=== PATIENT | male | born 1950 | race Hispanic/Latino ===

== ENCOUNTER 2017-09-04 10:09 | Emergency (ER) | payer OTHER ==
[~2017-09-04] VITALS: Ht 160 cm; Wt 84.4 kg
[~2017-09-04 10:09] MED LIST: ENALAPRIL MALEA20 MG PO; GLIMEPIRIDE1 MG PO; LYRICA100 MG PO; NORCO 7.5-3251 EACH PO; PRAVASTATIN SOD40 MG PO; SMZ/TMP PO
--- NOTE | 2017-09-04 11:35 | Diagnostic Imaging Report ---
Exams: Head, maxillofacial and cervical spine CTs without IV contrast History: Trauma Comparison studies:None Technique: Axial images were obtained from the brain, face and cervical spine. Coronal and sagittal reconstructions obtained from the axial data. Intravenous contrast: None Findings: Head CT: Scalp: No abnormalities. Bones: No fractures, blastic or lytic lesions. Brain sulci: Appropriate for age. Ventricles: Normal in size and configuration. No hydrocephalus. Parenchyma: No mass, acute hemorrhage or acute or chronic cortical vascular insults. A couple of subtle hypodensities in the supratentorial white matter are nonspecific but most compatible with chronic microvascular ischemic changes. Sellar/suprasellar region: No abnormalities Craniocervical junction: The foramen magnum is patent. No Chiari one malformation. Maxillofacial CT: Soft tissues: Mild right premaxillary swelling. Incidental 5 mm dystrophic calcification in the superficial right prezygomatic soft tissues. Bones: No fractures or bony abnormalities. . Orbits: No abnormalities. Paranasal sinuses: Small retention cyst in the left maxillary sinus and mild left frontoethmoidal mucosal thickening. Remaining sinuses are clear. Incidental nonobstructing 7 mm left frontal sinus osteoma. Dentition: Multiple absent teeth. Multifocal dental caries with periapical lucencies at the left first maxillary molar and right second mandibular molar. Incidental impacted left third maxillary molar. Cervical spine CT: Fractures: None. Soft tissue injuries: No gross acute abnormalities. Atlantoaxial articulation: Intact. Alignment: Straightened cervical curvature may be positional. No subluxations. Cervicomedullary junction: No abnormalities. Patent foramen magnum. Soft tissues: No gross acute abnormalities. Vertebrae: No acute fractures, infection or destructive lytic or blastic osseous lesions. Small focal endplate depression deformities with small Schmorl's nodes and mild central vertebral body height loss at C6. Degenerative changes: Small disc osteophyte complexes at C5-C6 and at C6-C7 indent the thecal sac but do not result in canal stenosis. Moderate foraminal stenosis on the left at C5-C6 and bilaterally at C6-C7 due to uncovertebral arthrosis. Incidental findings: Nonaggressive-appearing 5 mm sclerotic lesion in the head of the posterior right first rib may reflect bone island. IMPRESSION: Head CT: 1. No acute abnormalities. 2. Minimal chronic microvascular ischemic changes. Facial CT: 1. Right premaxillary soft tissue swelling. 2. No maxillofacial fractures. Cervical spine CT: 1. No acute cervical spine fracture or subluxation. 2. Degenerative changes at C5-C6 and C6-C7 as described. 3. Cannot adequately evaluate ligament, spinal cord and or vascular abnormalities on the basis of this exam. Signed by: Dr. Ab Edwards M.D. on 09/04/2017 11:31 AM
[2017-09-04 12:14] VITALS: BP 141/87
[2017-09-04] MEDS ORDERED: ADENOSINE 6MG/2ML 1 ML ONE (17:27)
== END 2017-09-04 12:04 | disposition home or self-care (01) ==
LOC: ER 10:09
DX: S00.83XA Contusion of other part of head, initial encounter (principal); M54.2 Cervicalgia; S16.1XXA Strain of muscle, fascia and tendon at neck level, initial encounter; Y04.8XXA Assault by other bodily force, initial encounter; Y92.488 Other paved roadways as the place of occurrence of the external cause; I10 Essential (primary) hypertension; E11.9 Type 2 diabetes mellitus without complications; E78.5 Hyperlipidemia, unspecified; Z85.46 Personal history of malignant neoplasm of prostate
CPT/HCPCS: 70450; 70486; 72125; 99283; J0153

== ENCOUNTER → 2017-10-04 | Outpatient (CLI) | payer MEDICARE ==
--- NOTE | 2017-10-04 11:53 | Diagnostic Imaging Report ---
PROCEDURE: CT ABDOMEN AND PELVIS WITHOUT CONTRAST TECHNIQUE: The abdomen and pelvis were scanned utilizing a multidetector helical scanner from the diaphragm to the lesser trochanter after the oral administration of water. No IV contrast was administered per protocol. Coronal and sagittal multiplanar reformations were obtained. COMPARISON: [facility], CT, CT ABDOMEN/PELVIS , 09/04/2016, 11:36. INDICATIONS: URINARY CALCULUS/COLIC FINDINGS: ABSENCE OF INTRAVENOUS CONTRAST DECREASES SENSITIVITY FOR DETECTION OF FOCAL LESIONS AND VASCULAR PATHOLOGY. LOWER THORAX: Multiple linear opacities are noted in the right middle lobe and posterior and lateral right lower lobe (for example series 3, image 2), with clustered 4 mm nodular densities in the lateral right lower lobe (series 3, image 2) and this clustered 5-6 mm nodular density in the posterior right lower lobe (for example series 3, images 7-11). Linear opacity in the lingula (series 3, image 5). HEPATOBILIARY: Diffuse hepatic steatosis. No focal lesions. No biliary ductal dilation. The gallbladder is unremarkable. SPLEEN: No splenomegaly. PANCREAS: No focal masses or ductal dilatation. ADRENALS: No adrenal nodules. KIDNEYS/URETERS: Slight interval increase in size of 0.9 x 0.6 cm nonobstructing calculus in the left mid to inferior aspect (series 3, image 91) disease, which previously measured approximately 0.7 x 0.4 cm.. No other renal or any ureteral calculi. No hydronephrosis, hydroureter, or evidence of obstruction. Stable 3.6 x 4.1 cm simple cyst in the left superior pole (series 3, image 69) disease. Stable 2.1 x 1.7 cm simple cyst in the left interpolar region (series 3, image 80). Slight interval increase in size of 2.9 x 3.0 cm simple cyst in the posterior mid to inferior left kidney (series 3, image 93), which previously measured 2.5 x 2.6 cm.. Stable 1.4 x 1.1 cm simple cyst in the left interpolar region (series 3, image 85). Stable 0.9 cm fluid density simple cyst in the right inferior pole (series 3, image 90). PELVIC ORGANS/BLADDER: Bladder is unremarkable. No stones, wall thickening, or focal lesions. Prostate is unremarkable. PERITONEUM / RETROPERITONEUM: No free air or free fluid. LYMPH NODES: No lymphadenopathy. VESSELS: Atherosclerotic calcification of the distal abdominal aorta and proximal iliac vessels. Incidental note is made of a left circumaortic renal vein GI TRACT: No bowel dilation or evidence of obstruction. BONES AND SOFT TISSUES: Degenerative disc changes, predominantly L4-L5, and L5-S1. Facet hypertrophy. L4-L5 and L5-S1. No aggressive lytic lesions. Soft tissues are grossly unremarkable. IMPRESSION: 1. slight interval increase in size of 0.9 x 0.6 cm nonobstructing calculus in the left mid to inferior kidney. No other renal or any ureteral calculi. No hydronephrosis or obstruction. 2. Slight interval increase in size of 3.0 cm simple cyst in the posterior mid to inferior left kidney. Other bilateral simple cysts are stable. 3. Diffuse hepatic steatosis. 4. Multiple linear opacities in the right middle lobe and posterior and lateral right lower lobe and lingula, may represent subsegmental atelectasis or scarring. 5. Clustered 4 and 5-6 mm nodular densities in the lateral right lower lobe and posterior right lower lobe, respectively, which may represent confluent scarring, however, infectious nodules are also a consideration, in the appropriate clinical setting. This may be further evaluated with chest CT. Lorenzo Paulson M.D. Dictated by: Lorenzo Paulson M.D. on 10/04/2017 at 11:59 Electronically approved by: Lorenzo Paulson M.D. on 10/04/2017 at 11:59
== END ==
LOC: CT 10:37
PROVIDERS: ATTEND Urology
DX: N20.0 Calculus of kidney (principal); R91.8 Other nonspecific abnormal finding of lung field
CPT/HCPCS: 74176

== ENCOUNTER → 2017-12-07 | Day surgery (SDC) | payer MEDICARE ==
[~2017-12-07] MED LIST changes: +DEXAMETHASONE SOD PHOS INJ 4 MG/ML VIAL ONE; +FENTANYL CITRATE/PF 100MCG/2 ML INJ ONE; +GENTAMICIN 80MG/NS 100 ML 200 ML IV ONE; +IOPAMIDOL 610MG/1ML 300 MG/ML VIAL IV ONE; +MIDAZOLAM HCL 2 MG/2 ML VIAL ONE; +SEVOFLURANE INHAL SOLN 250 ML PEN BTL ONE
[2017-12-07 08:30] LABS: BASOPHILS % 0.4 % (0.0-1.0); EOSINOPHILS # (AUTO) 0.1 (0.0-0.4); EOSINOPHILS % 1.7 % (0.0-6.0); HEMATOCRIT 38.7 % (38.2-49.6); HEMOGLOBIN 13.2 g/dL (14.0-18.0); MEAN CORPUSCULAR HGB CONC 34.1 g/dL (31-35); MEAN CORPUSCULAR VOLUME 90.8 fL (81-99); MONOCYTES # (AUTO) 0.4 (0.2-0.8); MONOCYTES % 5.9 % (4.4-11.3); NEUTROPHILS # (AUTO) 4.3 (2.1-6.9); NEUTROPHILS % 62.7 % (38.7-80.0); PLATELET COUNT 226 x10e3/uL (140-360); RED BLOOD COUNT 4.26 x10e6/uL (4.3-5.7); RED CELL DISTRIBUTION WIDTH 12.9 % (11.7-14.4)
[2017-12-07 08:47] LABS: ANION GAP 18.1 mmol/L (8-16); CALCIUM 9.8 mg/dL (8.4-10.2); CREATININE, SERUM 1.28 mg/dL (0.72-1.25); POTASSIUM 4.1 mmol/L (3.5-5.1)
--- NOTE | 2017-12-07 09:09 | Diagnostic Imaging Report ---
PROCEDURE: Frontal and lateral views of the chest. COMPARISON: Chest radiograph 10/02/16. INDICATIONS: PRE OP FOR RENAL STONES FINDINGS: Lines/tubes: Spinal stimulator projects over the mid thoracic spine. Lungs: The lungs are moderately inflated. There is no evidence of pneumonia or pulmonary edema. Calcified nodule projects over the right lower lung, unchanged. Right hemidiaphragm is mildly elevated, new since prior radiograph, likely reflecting decreased lung volumes. Linear subsegmental atelectasis at the right lung base. Pleura: There is no pleural effusion or pneumothorax. Heart and mediastinum: The cardiomediastinal silhouette is unremarkable. Bones: No acute bony abnormality. IMPRESSION: No acute radiographic abnormality. Dictated by: DERREK AGGARWAL M.D. on 12/07/2017 at 9:17 Electronically approved by: DERREK AGGARWAL M.D. on 12/07/2017 at 9:17
--- NOTE | 2017-12-07 09:12 | Diagnostic Imaging Report ---
PROCEDURE:X-RAY ABDOMEN - KUB COMPARISON:KUB 12/21/16. INDICATIONS:PRE OP FOR RENAL STONES FINDINGS: Patient's body habitus, overlying bowel gas, and technique limit evaluation for stone. No definite stone overlying the renal shadows, ureters, or bladder. Non-obstructive bowel gas pattern. No acute bony abnormality. Spinal stimulator device is noted in unchanged position. CONCLUSION: No acute radiographic abnormality. No evidence of renal or ureteral stone, although the evaluation is limited. Dictated by: DERREK AGGARWAL M.D. on 12/07/2017 at 9:20 Electronically approved by: DERREK AGGARWAL M.D. on 12/07/2017 at 9:20
[2017-12-07 11:30] VITALS: BP 131/81
--- OUTSIDE RECORDS SUMMARY | 2017-12-11 13:16 | XMS REPORT | Clinical Summary ---
Author Author [facility] Organization [facility] Address Unknown Phone Unavailable Care Team Providers Care Machined Parts Quality Inspector Name Role Phone PCP Unavailable Allergies Active Allergy Reactions Severity Noted Date Comments Penicillins Itching 07/19/2016 Current Medications Prescription Sig. Disp. Refills Start End Date Status Date pregabalin (LYRICA) 100 Take 100 mg by mouth Active MG capsule daily. HYDROcodone-acetaminophen Take 1 tablet by mouth Active (NORCO 7.5-325) 7.5-325 every 6 (six) hours as mg per tablet needed for Pain. pravastatin (PRAVACHOL) Take 40 mg by mouth Active 40 MG tablet daily. enalapril (VASOTEC) 20 MG Take 20 mg by mouth Active tablet daily. glimepiride (AMARYL) 1 MG Take 1 mg by mouth every Active tablet morning before breakfast. Active Problems Problem Noted Date Chronic pain syndrome 08/24/2016 S/P insertion of spinal cord stimulator 08/24/2016 Social History Tobacco Use Types Packs/Day Years Used Date Never Smoker Alcohol Use Drinks/Week oz/Week Comments No Sex Assigned at Date Recorded Not on file Last Filed Vital Signs Not on file Plan of Treatment Not on file Implants Implanted Type Area Diathermy Equipment Repairer Device Expiration Model / Identifier Date Serial / Lot Stim Neuro Proclaim 7 Elite - Pain N/A: Spine ST ZULMA 07/19/2018 3662 / [id number] Mgmt/Stimu Thoracic MED:NEUROMODULA / Implanted: Qty: 1 on 08/24/2016 by Ugo Rdz MD Pump Lead Penta 3mm 60cm 3228 - Pain N/A: Spine ADV 11/08/2017 3228 / [id number] Mgmt/Stimu Thoracic NEUROMODULATION / Implanted: Qty: 1 on 08/24/2016 by Ugo Bailey MD Results Not on fileafter 12/06/2016
--- NOTE | 2018-01-16 00:37 | Operative Report ---
DATE OF PROCEDURE: December 07, 2017 PREOPERATIVE DIAGNOSES: 1. Left nephrolithiasis. 2. Chronic renal insufficiency. POSTOPERATIVE DIAGNOSES: 1. Left nephrolithiasis. 2. Chronic renal insufficiency. OPERATIONS PERFORMED: 1. Cystourethroscopy with bilateral ureteral catheterization and retrograde ureteropyelography (separate procedure performed for the chronic renal insufficiency). 2. Interpretation of retrograde ureteropyelography. 3. Supervision of fluoroscopy, no radiologist present. 4. Left-sided extracorporeal shock wave lithotripsy (separate procedure performed to treat the 9 mm left lower pole stone). ANESTHESIA: General. COMPLICATIONS: None. CLINICAL SUMMARY: Hyacinth Drummond is a 67-year-old man with long-standing urological history. The patient has prostate cancer and BPH. He has a growing stone in the left lower pole that has now grown to 9 mm. Options were discussed with the patient. He elected to proceed with lithotripsy as planned. He is aware of the risks of bleeding, infection, injury to adjacent structures, need for additional procedures, and elected to proceed. OPERATIVE PROCEDURE IN DETAIL: Informed consent was verified. Hyacinth Drummond was properly identified, taken to the operating room, and placed on the lithotripsy table in supine position. Anesthesia was uneventfully begun. The patient's left nephrolithiasis was localized with biplanar fluoroscopy. A total of 3000 shocks were delivered with fragmentation noted. The patient was carefully and gently repositioned in dorsal lithotomy position with all pressure points well padded. His genitalia were prepared and draped in usual sterile fashion. The 22.5-[place] cystoscope sheath with the visual obturator in place was atraumatically inserted into the patient's urethra. It was guided down the unremarkable distal urethra, past the normal sphincteric region, through the prostate bed, which was significant for having had transurethral resection. Panendoscopy of the urinary bladder revealed some erythema around both ureteral orifices, but no tumors, no stones, no diverticula. Blanching was noted of the prostatic urethra region and the bladder neck region consistent with prior radiation. An 8-[place] catheter was used to cannulate each ureter, and retrograde ureteral pyelograms were performed. Interpretation of retrograde ureteropyelography: Contrast was instilled in retrograde fashion bilaterally. There were filling defects in the left lower pole consistent with fragmented stone fragments as well as with blood clots from the lithotripsy. unobstructed drainage was observed bilaterally fluoroscopically. The patient's bladder was drained. The cystoscope was withdrawn. Digital rectal examination revealed a 30 g prostate, smooth, non-fluctuant, and without any nodules; and the patient was uneventfully reversed from anesthesia and taken to recovery room in stable condition. There were no complications to the procedure. He tolerated the procedure well. Explicit postop instructions were given. Will plan to follow the patient up in the office. Job#: [id number]
--- NOTE | 2018-01-16 00:46 | Operative Report ---
DATE OF PROCEDURE: December 07, 2017 PREOPERATIVE DIAGNOSES: 1. Left lower pole nephrolithiasis. 2. Chronic renal insufficiency. POSTOPERATIVE DIAGNOSES: 1. Left lower pole nephrolithiasis. 2. Chronic renal insufficiency. OPERATIONS PERFORMED: 1. Staged left-sided extracorporeal shock wave lithotripsy (separate procedure performed for the nephrolithiasis). 2. Cystourethroscopy with bilateral ureteral catheterization and retrograde ureteropyelography (separate procedure performed for the renal insufficiency). 3. Interpretation of retrograde ureteropyelography. 4. Supervision of fluoroscopy, no radiologist present. ANESTHESIA: General. COMPLICATIONS: None. CLINICAL SUMMARY: Hyacinth Drummond is a 67-year-old man with prostate cancer and BPH. He has a growing left lower pole stone. The stone has now grown to 9 mm and he elected to proceed with management. He is aware of the risks of bleeding, infection, injury to adjacent structures, need for additional procedures, and elected to proceed. OPERATIVE PROCEDURE IN DETAIL: Informed consent was verified. Hyacinth Drummond was properly identified, taken to the operating room, and placed on lithotripsy table in supine position. Anesthesia was uneventfully begun. The patient's left nephrolithiasis was localized with biplanar fluoroscopy. A total of 3000 shocks were delivered with excellent fragmentation noted. The patient was then carefully and gently repositioned in dorsal lithotomy position with all pressure points well padded. His genitalia were prepared and draped in usual sterile fashion. The 22.5-Azeri cystoscope sheath with the visual obturator in place was atraumatically inserted into the patient's urethra. It was guided down the normal distal urethra, through the sphincteric region, through the prostate bed, which was relatively open into the patient's bladder, but there was some erythema around both ureteral orifices prior to any instrumentation. Panendoscopy revealed no suspicious mucosal lesions, no tumors, and no stones. A ureteral catheter was used to cannulate each ureter, and retrograde ureteral pyelograms were performed. Interpretation of retrograde ureteropyelography: Contrast was instilled in retrograde fashion bilaterally. On the right hand side, there were no tumors, no stones, no diverticula. Unobstructed drainage was observed fluoroscopically. The left hand side exhibited filling defects in the left lower pole consistent with fragmented stone debris as well as blood clots. Nevertheless, there was no hydronephrosis and unobstructed drainage was observed bilaterally fluoroscopically. The patient's bladder was drained. The cystoscope was withdrawn. Digital rectal examination revealed a 30 g prostate, smooth, non-fluctuant, and without any nodules; and the patient was uneventfully reversed from anesthesia and taken to recovery room in stable condition. There were no complications to the procedure. He tolerated the procedure well. Explicit postop instructions were given, and we will follow the patient up in the office and of course indefinitely. Job#: [id number]
== END | disposition home or self-care (01) ==
LOC: OR 06:53
PROVIDERS: ATTEND Urology
DX: N20.0 Calculus of kidney (principal); C61 Malignant neoplasm of prostate; E11.22 Type 2 diabetes mellitus with diabetic chronic kidney disease; I12.9 Hypertensive chronic kidney disease with stage 1 through stage 4 chronic kidney disease, or unspecified chronic kidney disease; N18.9 Chronic kidney disease, unspecified; N40.0 Benign prostatic hyperplasia without lower urinary tract symptoms; Z88.0 Allergy status to penicillin; Z79.84 Long term (current) use of oral hypoglycemic drugs; Z86.73 Personal history of transient ischemic attack (TIA), and cerebral infarction without residual deficits
CPT/HCPCS: 36415; 50590; 71046; 74018; 80048; 82948; 83970; 84550; 85025; 93005; C1758; J1100; J1580; J2250; Q9967

== ENCOUNTER → 2018-06-26 | Outpatient (CLI) | payer MEDICARE ==
[~2018-06-26] MED LIST changes: -DEXAMETHASONE SOD PHOS INJ 4 MG/ML VIAL ONE; -FENTANYL CITRATE/PF 100MCG/2 ML INJ ONE; -GENTAMICIN 80MG/NS 100 ML 200 ML IV ONE; -IOPAMIDOL 610MG/1ML 300 MG/ML VIAL IV ONE; -MIDAZOLAM HCL 2 MG/2 ML VIAL ONE; -SEVOFLURANE INHAL SOLN 250 ML PEN BTL ONE
--- NOTE | 2018-06-26 10:21 | Diagnostic Imaging Report ---
Exam: Abdominal film Clinical History: Calculus of kidney Comparison: None available DISCUSSION: The bowel gas pattern shows no dilated, air-filled loops of bowel. Spinal stimulator device is noted, with leads terminating at the T7-T8 level. No calcifications project over the renal shadows or expected ureteral courses. Round left pelvic calcifications likely represent phleboliths. No mass effect or organomegaly. Degenerative disc changes and facet arthropathy of the lower lumbar spine. Status post L5 laminectomy. IMPRESSION: No plain film evidence of urolithiasis, though the renal shadows are partially obscured by overlying bowel contents. Signed by: Dr. Ab Wilson M.D. on 06/26/2018 10:17 AM
== END ==
LOC: RAD 09:36
PROVIDERS: ATTEND Urology
DX: N20.0 Calculus of kidney (principal)
CPT/HCPCS: 74018

== ENCOUNTER → 2018-10-14 | Outpatient (CLI) | payer MEDICARE, OTHER ==
[~2018-10-14] MED LIST changes: +IOPAMIDOL 370 MG/ML 200 ML INFUS..BTL INJ ONE; +SODIUM CHLORIDE 0.9% 250ML 250 ML ONE
[2018-10-14 09:15] LABS: BLOOD UREA NITROGEN 18 mg/dL (7-26); BUN/CREATININE RATIO 16 (6-25); CREATININE, SERUM 1.14 mg/dL (0.72-1.25); EST GLOMERULAR FILTRATION RATE > 60 ML/MIN (60-)
--- NOTE | 2018-10-14 11:15 | Diagnostic Imaging Report ---
CT of the abdomen and pelvis, with contrast, 10/14/2018. History: Renal calculus. Comparison: CT abdomen 10/04/2017. Technique: Multidetector CT scanning of the abdomen and pelvis was performed in the prone position from the level of the lung bases to the inferior pubic rami after intravenous administration of contrast. No oral contrast was administered. Coronal and sagittal multiplanar reformations were obtained. RADIATION DOSE: Total DLP: 1223 mGy*cm Dose modulation, iterative reconstruction, and/or weight based adjustment of the mA/kV was utilized to reduce the radiation dose to as low as reasonably achievable. Discussion: LUNG BASES: There is dependent atelectasis in the right middle lobe and lingula. ABDOMEN: Multiple simple cysts are present in both kidneys, the largest on the left measuring 4.5 cm and the largest on the right measuring 2.1 cm. Multiple additional subcentimeter hypodensities are present bilaterally which are too small to characterize. There is no evidence of nephrolithiasis or hydronephrosis. The ureters are normal in course and caliber bilaterally and are well opacified throughout their course to the bladder without evidence of irregularity or filling defect. There is diffuse low-density of the liver without focal hepatic abnormality. The gallbladder, biliary tree, spleen, pancreas, and adrenal glands are normal. The hepatic vein, portal vein, and splenic vein are patent. The abdominal aorta is within normal limits for size. There is no bowel dilatation. Scattered diverticuli are present without throughout the colon without evidence of adjacent inflammation. There is no evidence of adenopathy or free fluid. PELVIS: The bladder, prostate, and seminal vesicles are normal in appearance. There is no evidence of free fluid or adenopathy. BONES AND SOFT TISSUES: Degenerative changes are present throughout the lumbar spine without evidence of lytic or sclerotic lesion. Spinal stimulator device is present entering the lower thoracic spine. IMPRESSION: 1. No evidence of nephrolithiasis or hydronephrosis. The 7 mm stone previously seen in the left lower pole is no longer present. 2. Multiple simple bilateral renal cysts with additional subcentimeter hypodensities which are too small to characterize. 3. Diffuse fatty infiltration of the liver. 4. Colonic diverticulosis without evidence of diverticulitis. Signed by: Orion Jett on 10/14/2018 11:12 AM
== END ==
LOC: CT 07:37
PROVIDERS: ATTEND Urology
DX: R31.21 Asymptomatic microscopic hematuria (principal)
CPT/HCPCS: 36415; 74178; 82565; 84520; J7050; Q9967

== ENCOUNTER → 2019-08-05 | Outpatient (CLI) | payer MEDICARE, OTHER ==
[~2019-08-05] MED LIST changes: -IOPAMIDOL 370 MG/ML 200 ML INFUS..BTL INJ ONE; -SODIUM CHLORIDE 0.9% 250ML 250 ML ONE
[2019-08-05 10:59] LABS: BASOPHILS % 0.5 % (0.0-1.0); EOSINOPHILS # (AUTO) 0.3 (0.0-0.4); EOSINOPHILS % 3.8 % (0.0-6.0); HEMATOCRIT 41.9 % (38.2-49.6); HEMOGLOBIN 13.7 g/dL (14.0-18.0); LYMPHOCYTES # (AUTO) 2.3 (1.0-3.2); LYMPHOCYTES % 28.3 % (18.0-39.1); MEAN CORPUSCULAR HGB CONC 32.7 g/dL (31-35); MEAN CORPUSCULAR VOLUME 91.9 fL (81-99); MONOCYTES # (AUTO) 0.5 (0.2-0.8); NEUTROPHILS % 61.2 % (38.7-80.0); PLATELET COUNT 226 x10e3/uL (140-360); RED BLOOD COUNT 4.56 x10e6/uL (4.3-5.7); RED CELL DISTRIBUTION WIDTH 13.5 % (11.7-14.4)
[2019-08-05 11:16] LABS: ANION GAP 15.3 mmol/L (8-16); CALCIUM 9.8 mg/dL (8.4-10.2); CREATININE, SERUM 1.36 mg/dL (0.72-1.25); POTASSIUM 4.3 mmol/L (3.5-5.1)
--- NOTE | 2019-08-05 11:27 | Diagnostic Imaging Report ---
Chest, 2 views, 08/05/2019. History: Preop, urologic procedure. Comparison: CT abdomen 10/14/2018. Findings: The cardiomediastinal silhouette and pulmonary vasculature are within normal limits. Ill-defined nodular opacity is present in the right upper lobe. Scattered linear opacities are present in both lungs. There is no evidence of pleural effusion. Thoracic spinal stimulator leads are present. There are no acute osseous or soft tissue abnormalities. Impression: Questionable nodular opacity in the right upper lobe which may represent scarring, but further evaluation with CT chest should be considered. Signed by: Orion Jett on 08/05/2019 11:23 AM
== END | disposition home or self-care (01) ==
LOC: DX 09:57 → EDSTATUS 08-08 14:00
PROVIDERS: ATTEND Urology
DX: R97.20 Elevated prostate specific antigen [PSA] (principal); C61 Malignant neoplasm of prostate; Z01.810 Encounter for preprocedural cardiovascular examination; Z01.812 Encounter for preprocedural laboratory examination; Z01.818 Encounter for other preprocedural examination; Z11.59 Encounter for screening for other viral diseases; Z53.9 Procedure and treatment not carried out, unspecified reason
CPT/HCPCS: 36415; 71046; 80048; 85025; 93005; U0002

== ENCOUNTER 2019-11-17 09:54 | Emergency (ER) | payer MEDICARE, OTHER ==
[~2019-11-17] VITALS: Ht 160 cm; Wt 84.4 kg
[2019-11-17] MEDS ORDERED: ONDANSETRON HCL INJ 2MG/ML 2ML 2 MG/ML VIAL IV STA (10:15)
[2019-11-17] MEDS ORDERED: SODIUM CHLORIDE 0.9% 1000ML 1,000 ML IV STA (10:15)
[2019-11-17] MEDS ORDERED: PANTOPRAZOLE 40 MG 10ML VIAL IV STA (10:15)
[2019-11-17 10:40] LABS: BASOPHILS % 0.5 % (0.0-1.0); EOSINOPHILS # (AUTO) 0.1 (0.0-0.4); EOSINOPHILS % 0.9 % (0.0-6.0); HEMATOCRIT 38.9 % (38.2-49.6); HEMOGLOBIN 13.2 g/dL (14.0-18.0); MEAN CORPUSCULAR HEMOGLOBIN 31.4 pg (28-32); MEAN CORPUSCULAR HGB CONC 33.9 g/dL (31-35); MEAN CORPUSCULAR VOLUME 92.6 fL (81-99); MONOCYTES # (AUTO) 0.3 (0.2-0.8); MONOCYTES % 4.1 % (4.4-11.3); NEUTROPHILS # (AUTO) 5.7 (2.1-6.9); NEUTROPHILS % 70.1 % (38.7-80.0); PLATELET COUNT 234 x10e3/uL (140-360); RED CELL DISTRIBUTION WIDTH 13.2 % (11.7-14.4)
--- NOTE | 2019-11-17 10:50 | Diagnostic Imaging Report ---
EXAMINATION: CHEST SINGLE (PORTABLE) INDICATION: Nausea, vomiting COMPARISON: Chest radiograph 08/05/2019 FINDINGS: LINES/TUBES:None LUNGS:The lungs are well-inflated. No focal consolidation or pulmonary edema. PLEURA:No pleural effusion or pneumothorax. MEDIASTINUM:The cardiomediastinal silhouette appears normal in size and shape. BONES/SOFT TISSUES:No acute osseous injury. ABDOMEN:No free air under the diaphragm. IMPRESSION: No focal pneumonia or pulmonary edema. Signed by: Donald Rivas MD on 11/17/2019 10:47 AM
[2019-11-17 10:51] LABS: ALBUMIN 4.6 g/dL (3.5-5.0); ALBUMIN/GLOBULIN RATIO 1.5 (0.8-2.0); ANION GAP 13.6 mmol/L (8-16); CALCIUM 9.4 mg/dL (8.4-10.2); CREATININE, SERUM 1.48 mg/dL (0.72-1.25); MAGNESIUM 1.9 MG/DL (1.3-2.1); POTASSIUM 3.6 mmol/L (3.5-5.1)
[2019-11-17 10:59] LABS: CREATINE KINASE MB 0.9 ng/mL (0-5.0)
--- NOTE | 2019-11-17 11:26 | Emergency Department Note ---
History of Present Illnes History of Present Illness Chief Complaint: COVID PUI History of Present Illness This is a 69 year old male PATIENT IN FROM HOME WITH COMPLAINTS OF LOSS OF TASTE AND SMELL, NAUSEA AND VOMITING, AND SHORTNESS OF BREATH X 4 DAYS; STATES WAS TESTED FOR COVID APPROX 6 WEEKS AGO AND IT WAS NEGATIVE. PATIENT ALERT AND ORIENTED, RESP EVEN AND NONLABORED, 98% ON ROOM AIR, POOR HISTORIAN. Historian: Patient Arrival Mode: Car [employer] Required: No Onset (how long ago): day(s) (4) Radiation: Reports non-radiation Severity: moderate Onset quality: gradual Timing of current episode: constant Chronicity: new Context: Denies recent illness Relieving factors: none Exacerbating factors: none Associated symptoms: Reports denies other symptoms Past Medical/Family History Physician Review I have reviewed the patient's past medical and family history. Any updates have been documented here. Past Medical History Recent Fever: No Clinical Suspicion of Infectio: Yes New/Unexplained Change in Ment: No Past Medical History: Hypertension, Diabetes, Cancer, Kidney Stones, Hyperliped emia, Chronic Back Pain Other Medical History: PROSTATE CANCER Past Surgical History: Hernia Repair, Back Surgery Other Surgery: BACK STIMULATOR Social History Smoking Cessation: Never Smoker Counseling Performed: No Alcohol Use: None Any Illegal Drug Use: No TB Exposure/Symptoms: No Physically hurt or threatened: No Family History Family history of heart diseas: No Other Last Tetanus: UTD Any Pre-Existing Lines (PICC,: No Review of Systems Review of Systems Constitutional: Reports as per HPI EENTM: Reports as per HPI Cardiovascular: Reports no symptoms Respiratory: Reports no symptoms Gastrointestinal: Reports as per HPI Genitourinary: Reports no symptoms Musculoskeletal: Reports no symptoms Integumentary: Reports no symptoms Neurological: Reports no symptoms Psychological: Reports no symptoms Endocrine: Reports no symptoms Hematological/Lymphatic: Reports no symptoms Physical Exam Related Data Allergies: Coded Allergies: Penicillins (Verified Allergy, Unknown, RASH, 11/17/19) Triage Vital Signs Vital Signs Date Time Temp Pulse Resp B/P (MAP) Pulse Ox O2 Delivery O2 Flow Rate FiO2 11/17/19 09:54 98.9 93 18 161/84 98 Room Air Vital signs reviewed: Yes Physical Exam CONSTITUTIONAL Constitutional: Present well-developed, Present well-nourished HENT HENT: Present normocephalic, Present atraumatic, Present oropharynx clear/moist, Present nose normal HENT L/R: Present left ext ear normal, Present right ext ear normal EYES Eyes: Reports PERRL, Reports conjunctivae normal NECK Neck: Present ROM normal PULMONARY Pulmonary: Present effort normal, Present breath sounds normal CARDIOVASCULAR Cardiovascular: Present regular rhythm, Present heart sounds normal, Present capillary refill normal, Present normal rate GASTROINTESTINAL Abdominal: Present soft, Present nontender, Present bowel sounds normal GENITOURINARY Genitourinary: Present exam deferred SKIN Skin: Present warm, Present dry MUSCULOSKELETAL Musculoskeletal: Present ROM normal NEUROLOGICAL Neurological: Present alert, Present oriented x 3, Present no gross motor or sensory deficits PSYCHOLOGICAL Psychological: Present mood/affect normal, Present judgement normal Results Laboratory Result Diagram: 11/17/19 1012 11/17/19 1012 Laboratory Laboratory Tests Test 11/17/19 10:12 White Blood Count 8.14 x10e3/uL (4.8-10.8) Red Blood Count 4.20 x10e6/uL (4.3-5.7) Hemoglobin 13.2 g/dL (14.0-18.0) Hematocrit 38.9 % (38.2-49.6) Mean Corpuscular Volume 92.6 fL (81-99) Mean Corpuscular Hemoglobin 31.4 pg (28-32) Mean Corpuscular Hemoglobin Concent 33.9 g/dL (31-35) Red Cell Distribution Width 13.2 % (11.7-14.4) Platelet Count 234 x10e3/uL (140-360) Neutrophils (%) (Auto) 70.1 % (38.7-80.0) Lymphocytes (%) (Auto) 24.0 % (18.0-39.1) Monocytes (%) (Auto) 4.1 % (4.4-11.3) Eosinophils (%) (Auto) 0.9 % (0.0-6.0) Basophils (%) (Auto) 0.5 % (0.0-1.0) Neutrophils # (Auto) 5.7 (2.1-6.9) Lymphocytes # (Auto) 2.0 (1.0-3.2) Monocytes # (Auto) 0.3 (0.2-0.8) Eosinophils # (Auto) 0.1 (0.0-0.4) Basophils # (Auto) 0.0 (0.0-0.1) Absolute Immature Granulocyte (auto 0.03 x10e3/uL (0-0.1) Sodium Level 142 mmol/L (136-145) Potassium Level 3.6 mmol/L (3.5-5.1) Chloride Level 108 mmol/L (98-107) Carbon Dioxide Level 24 mmol/L (22-29) Anion Gap 13.6 mmol/L (8-16) Blood Urea Nitrogen 17 mg/dL (7-26) Creatinine 1.48 mg/dL (0.72-1.25) Estimat Glomerular Filtration Rate 47 ML/MIN (60-) BUN/Creatinine Ratio 11 (6-25) Glucose Level 141 mg/dL (74-118) Calcium Level 9.4 mg/dL (8.4-10.2) Magnesium Level 1.9 MG/DL (1.3-2.1) Total Bilirubin 0.6 mg/dL (0.2-1.2) Aspartate Amino Transf (AST/SGOT) 29 IU/L (5-34) Alanine Aminotransferase (ALT/SGPT) 36 IU/L (0-55) Alkaline Phosphatase 101 IU/L (40-150) Creatine Kinase 79 IU/L (30-200) Creatine Kinase MB 0.90 ng/mL (0-5.0) Troponin I 0.005 ng/mL (0-0.300) Total Protein 7.7 g/dL (6.5-8.1) Albumin 4.6 g/dL (3.5-5.0) Globulin 3.1 g/dL (2.3-3.5) Albumin/Globulin Ratio 1.5 (0.8-2.0) Lab results reviewed: Yes Imaging Imaging results reviewed: Yes Procedures 12 Lead ECG Interpretation ECG Interpretation : ECG: ECG 1 [employer]: Interpreted by ED physician Date: Nov 17, 2019 Time: 10:06 Rhythm: sinus rhythm Rate: normal BPM: 94 QRS axis: normal ST segments normal: Yes Clinical Impression: normal ECG Assessment & Plan Medical Decision Making MDM N/V and loss of taste/smell - check cbc, chem, covid swab, cxr - likely COVID19, eval renal insuff, electrolyte abnl, pneumonia. IVF's ,and Zofran ordered Reassessment Reassessment Zofran ODT, drink plenty of fluids, self-quarantine, Tylenol as directed, F/U PCP, RTED prn Assessment & Plan Final Impression: (1) Nausea & vomiting (2) Loss of taste (3) Suspected COVID-19 virus infection (4) Renal insufficiency Depart Disposition: HOME, SELF-CARE Last Vital Signs Date Time Temp Pulse Resp B/P (MAP) Pulse Ox O2 Delivery O2 Flow Rate FiO2 11/17/19 09:54 98.9 93 18 161/84 98 Room Air Home Meds Reported Medications Enalapril Maleate (ENALAPRIL MALEATE) 20 Mg Tablet, 20 MG PO DAILY 10/02/16 Glimepiride (GLIMEPIRIDE) 1 Mg Tablet, 1 MG PO DAILY 10/02/16 Pravastatin Sodium (PRAVASTATIN SODIUM) 40 Mg Tablet, 40 MG PO DAILY 10/02/16 Hydrocodone Bit/Acetaminophen (NORCO 7.5-325 TABLET) 1 Each Tablet, 1 EA PO TID, TAB 10/02/16 Pregabalin (LYRICA) 100 Mg Capsule, 100 MG PO TID 10/02/16 Medications in the ED Pantoprazole Sodium 40 mg ONCE STAT IV Last administered on 11/17/19at 10:48; Admin Dose 40 MG; Start 11/17/19 at 10:15; Stop 11/17/19 at 10:21; Status DC Ondansetron HCl 4 mg ONCE STAT IV Last administered on 11/17/19at 10:48; Admin Dose 4 MG; Start 11/17/19 at 10:15; Stop 11/17/19 at 10:21; Status DC Sodium Chloride 1,000 ml @ 0 mls/hr Q0M STAT IV Last administered on 11/17/19at 10:48; Admin Dose 999 MLS/HR; Start 11/17/19 at 10:15; Stop 11/17/19 at 10:18; Status DC MARGOT CRUZ MD Nov 17, 2019 11:26
== END 2019-11-17 11:59 | disposition home or self-care (01) ==
LOC: ER 10:43
DX: R11.2 Nausea with vomiting, unspecified (principal); N28.9 Disorder of kidney and ureter, unspecified; R43.9 Unspecified disturbances of smell and taste; Z11.59 Encounter for screening for other viral diseases
CPT/HCPCS: 36415; 71045; 80053; 82550; 82553; 83735; 84484; 85025; 93005; 99284; C9113; J2405; J7030; U0002

== ENCOUNTER 2022-01-21 10:19 | Emergency (ER) | payer MEDICARE, OTHER ==
[~2022-01-21] VITALS: Ht 160 cm; Wt 82.6 kg
[2022-01-21] MEDS ORDERED: LIDOCAINE 4% PATCH TP SCH (10:45)
[2022-01-21] MEDS ORDERED: KETOROLAC TROMETHAMINE 30 MG/ML VIAL IM ONE (10:45)
[2022-01-21] MEDS ORDERED: KETOROLAC TROMETHAMINE 30 MG/ML VIAL ONE (11:01)
[2022-01-21] MEDS ORDERED: LIDOCAINE 4% PATCH TP ONE (11:02)
== END 2022-01-21 11:00 | disposition home or self-care (01) ==
LOC: MERGE 10:26 → ER 10:26
DX: M62.830 Muscle spasm of back (principal); M54.6 Pain in thoracic spine; G89.29 Other chronic pain; I10 Essential (primary) hypertension; E11.9 Type 2 diabetes mellitus without complications; E78.5 Hyperlipidemia, unspecified; Z98.0 Intestinal bypass and anastomosis status
CPT/HCPCS: 99282; J1885

== ENCOUNTER 2023-11-14 11:06 | Inpatient (IN) | payer MEDICARE ==
[~2023-11-14] VITALS: Ht 160 cm; Wt 82.6 kg
[2023-11-14 11:06] VITALS: TEMP 98.6
[2023-11-14] MEDS: ONDANSETRON HCL INJ 2MG/ML 2ML 2 MG/ML VIAL IV STA (12:00)
[2023-11-14] MEDS: Morphine 4mg INJECTION 4 MG/ML INJ IV STA (12:00)
[2023-11-14] MEDS: SODIUM CHLORIDE 0.9% 1000ML 1,000 ML IV STA (12:01)
[2023-11-14 12:12] LABS: BILIRUBIN,URINE NEGATIVE (NEGATIVE); CLARITY,URINE SL CLOUDY (CLEAR); COLOR,URINE YELLOW (YELLOW); GLUCOSE, URINE NEGATIVE (NEGATIVE); KETONES,URINE NEGATIVE (NEGATIVE); LEUKOCYTE ESTERASE ,URINE NEGATIVE (NEGATIVE); NITRITE,URINE NEGATIVE (NEGATIVE); PH,URINE 5.5 (5 - 7); PROTEIN,URINE DIPSTICK >=300 (NEGATIVE); URINE UROBILINOGEN 0.2 mg/dL (0.2 - 1)
[2023-11-14 12:14] LABS: BACTERIA,URINE MODERATE /HPF; EPITHELIAL CELLS,URINE FEW /LPF; RBC,URINE >50 /HPF (0-5); WBC,URINE (MAN) 0-5 /HPF (0-5)
[2023-11-14 12:29] LABS: BASOPHILS % 0.4 % (0.0-1.0); EOSINOPHILS # (AUTO) 0.1 (0.0-0.4); HEMATOCRIT 50.9 % (38.2-49.6); HEMOGLOBIN 16.2 g/dL (14.0-18.0); LYMPHOCYTES # (AUTO) 2.1 (1.0-3.2); LYMPHOCYTES % 20.8 % (18.0-39.1); MEAN CORPUSCULAR HGB CONC 31.8 g/dL (31-35); MEAN CORPUSCULAR VOLUME 97.3 fL (81-99); MONOCYTES # (AUTO) 0.5 (0.2-0.8); NEUTROPHILS # (AUTO) 7.5 (2.1-6.9); NEUTROPHILS % 72.5 % (38.7-80.0); PLATELET COUNT 236 x10e3/uL (140-360); RED BLOOD COUNT 5.23 x10e6/uL (4.3-5.7); RED CELL DISTRIBUTION WIDTH 13.6 % (11.7-14.4); WHITE BLOOD COUNT 10.27 x10e3/uL (4.8-10.8)
[2023-11-14 12:46] LABS: INR 0.94; PROTHROMBIN TIME 13.1 seconds (11.9-14.5)
[2023-11-14 12:47] LABS: PARTIAL THROMBOPLASTIN TIME 29.9 seconds (23.8-35.5)
[2023-11-14 13:01] LABS: ALBUMIN 4.1 g/dL (3.5-5.0); BILIRUBIN,TOTAL 0.6 mg/dL (0.2-1.2); CREATININE, SERUM 1.48 mg/dL (0.72-1.25); MAGNESIUM 2.1 MG/DL (1.3-2.1); TOTAL PROTEIN 8.4 g/dL (6.5-8.1)
[2023-11-14 13:07] LABS: TROPONIN I 0.002 ng/mL (0-0.300)
[2023-11-14] MEDS ORDERED: IOPAMIDOL 370 MG/ML 100 ML INFUS..BTL INJ ONE (13:25)
[2023-11-14] MEDS ORDERED: SODIUM CHLORIDE 0.9% 100 ML ONE (13:25)
[2023-11-14] MEDS ORDERED: ONDANSETRON HCL INJ 2MG/ML 2ML 2 MG/ML VIAL IV PRN (16:45)
[2023-11-14] MEDS: METRONIDAZOLE 500MG/NS 100ML 100 ML IV SCH (17:08)
[2023-11-14] MEDS: BENZOCAINE/TETRACAINE/BUTAMBEN AERO SPRAY 56 GM CAN TOP ONE (17:16)
[2023-11-14] MEDS ORDERED: SIMETHICONE 80 MG CHEW PO PRN (17:30)
[2023-11-14] MEDS ORDERED: DOCUSATE SODIUM 100 MG CAP PO PRN (17:30)
[2023-11-14] MEDS ORDERED: LIDOCAINE 4% PATCH TP PRN (17:30)
[2023-11-14] MEDS ORDERED: ACETAMINOPHEN 325 MG TAB PO PRN (17:30)
[2023-11-14] MEDS ORDERED: DEXTROSE 50% SYRINGE 50 ML IV PRN (17:30)
[2023-11-14] MEDS ORDERED: DIPHENHYDRAMINE HCL 25 MG CAP PO PRN (17:30)
[2023-11-14] MEDS ORDERED: ALBUTEROL/IPRATROPIUM 3 ML NEB NEB PRN (17:30)
[2023-11-14] MEDS ORDERED: BENZONATATE 100 MG CAP PO PRN (17:30)
[2023-11-14] MEDS: DEXTROSE 5%/0.9% SOD CHL 1,000 ML IV SCH (19:20)
[2023-11-14] MEDS: SODIUM CHLORIDE 0.9% 250ML IRRIG IR SCH (19:20)
[2023-11-14 21:05] VITALS: PULSE 75; RESP 16; O2SAT 96
[2023-11-14 21:33] VITALS: PULSE 77; RESP 17
[2023-11-15] VITALS (11 sets, daily range): BP systolic 148–190; BP diastolic 81–118; PULSE 87–99; RESP 18–19; TEMP 98.5–99.1; O2SAT 93–99
[2023-11-15] MEDS: Morphine 2mg Syringe 2 MG/ML SYR IV PRN (01:16)
[2023-11-15] MEDS: ONDANSETRON HCL INJ 2MG/ML 2ML 2 MG/ML VIAL IV PRN (01:16)
[2023-11-15 06:11] LABS: BASOPHILS % 0.2 % (0.0-1.0); EOSINOPHILS # (AUTO) 0.2 (0.0-0.4); EOSINOPHILS % 1.7 % (0.0-6.0); HEMATOCRIT 41.7 % (38.2-49.6); HEMOGLOBIN 13.6 g/dL (14.0-18.0); LYMPHOCYTES # (AUTO) 2.1 (1.0-3.2); LYMPHOCYTES % 23.3 % (18.0-39.1); MEAN CORPUSCULAR HEMOGLOBIN 30.9 pg (28-32); MEAN CORPUSCULAR HGB CONC 32.6 g/dL (31-35); MEAN CORPUSCULAR VOLUME 94.8 fL (81-99); MONOCYTES # (AUTO) 0.7 (0.2-0.8); MONOCYTES % 7.5 % (4.4-11.3); NEUTROPHILS # (AUTO) 6.1 (2.1-6.9); NEUTROPHILS % 67.1 % (38.7-80.0); PLATELET COUNT 218 x10e3/uL (140-360); RED CELL DISTRIBUTION WIDTH 13.3 % (11.7-14.4); WHITE BLOOD COUNT 9.08 x10e3/uL (4.8-10.8)
[2023-11-15 06:32] LABS: ALBUMIN/GLOBULIN RATIO 0.9 (0.8-2.0); ANION GAP 14.7 mmol/L (8-16); BILIRUBIN,TOTAL 0.5 mg/dL (0.2-1.2); CALCIUM 8.4 mg/dL (8.4-10.2); CREATININE, SERUM 1.21 mg/dL (0.72-1.25); POTASSIUM 3.7 mmol/L (3.5-5.1); TOTAL PROTEIN 6.4 g/dL (6.5-8.1)
[2023-11-15 06:49] LABS: CREATINE KINASE 42 IU/L (30-200)
[2023-11-15 07:14] LABS: MAGNESIUM 1.9 MG/DL (1.3-2.1)
[2023-11-15 07:26] LABS: TROPONIN I < 0.05 ng/mL (0.0-0.40)
[2023-11-15] MEDS: PANTOPRAZOLE SOD 40 MG TABEC PO SCH (07:30)
[2023-11-15 14:31] LABS: CREATINE KINASE 40 IU/L (30-200)
[2023-11-15 16:17] LABS: TROPONIN I < 0.001 ng/mL (0-0.300)
[2023-11-15] MEDS: ENOXAPARIN SOD INJ 40 MG/0.4 ML SYR SC SCH (17:05)
[2023-11-15 17:18] LABS: THYROID STIMULATING HORMONE 1.985 uIU/mL (0.350-4.940)
[2023-11-15] MEDS: BISACODYL 10 MG SUPP PR SCH (21:00)
[2023-11-16] VITALS (10 sets, daily range): BP systolic 148–166; BP diastolic 72–88; PULSE 82–95; RESP 18–19; TEMP 98.2–98.8; O2SAT 94–98
[2023-11-16 06:04] LABS: BASOPHILS % 0.3 % (0.0-1.0); EOSINOPHILS % 0.6 % (0.0-6.0); HEMATOCRIT 42.5 % (38.2-49.6); HEMOGLOBIN 13.6 g/dL (14.0-18.0); LYMPHOCYTES # (AUTO) 1.4 (1.0-3.2); LYMPHOCYTES % 19.2 % (18.0-39.1); MEAN CORPUSCULAR HEMOGLOBIN 30.6 pg (28-32); MEAN CORPUSCULAR VOLUME 95.7 fL (81-99); MONOCYTES # (AUTO) 0.7 (0.2-0.8); MONOCYTES % 9.2 % (4.4-11.3); NEUTROPHILS % 70.4 % (38.7-80.0); PLATELET COUNT 209 x10e3/uL (140-360); RED BLOOD COUNT 4.44 x10e6/uL (4.3-5.7); RED CELL DISTRIBUTION WIDTH 13.4 % (11.7-14.4); WHITE BLOOD COUNT 7.09 x10e3/uL (4.8-10.8)
[2023-11-16 06:22] LABS: ANION GAP 14.8 mmol/L (8-16); CALCIUM 8.8 mg/dL (8.4-10.2); CREATININE, SERUM 1.26 mg/dL (0.72-1.25); POTASSIUM 3.8 mmol/L (3.5-5.1)
[2023-11-16] MEDS ORDERED: BISACODYL 10 MG SUPP PR ONE (11:00)
[2023-11-16] MEDS: BISACODYL 10 MG SUPP PR ONE (14:39)
[2023-11-16] MEDS: BISACODYL 10 MG SUPP PR SCH (20:28)
[2023-11-17] VITALS (9 sets, daily range): BP systolic 152–173; BP diastolic 73–88; PULSE 80–98; RESP 16–20; TEMP 98.2–98.9; O2SAT 95–98
[2023-11-17] MEDS: HYDRALAZINE HCL 20 MG/ML VIAL IV PRN (01:05)
[2023-11-17] MEDS: CARVEDILOL 12.5 MG TAB PO SCH (17:05)
[2023-11-17] MEDS: BISACODYL 10 MG SUPP PR SCH (21:10)
[2023-11-18] VITALS (11 sets, daily range): BP systolic 139–184; BP diastolic 69–95; PULSE 65–76; RESP 16–18; TEMP 98.5–98.7; O2SAT 94–100
[2023-11-18 05:45] LABS: BASOPHILS % 0.3 % (0.0-1.0); EOSINOPHILS # (AUTO) 0.1 (0.0-0.4); EOSINOPHILS % 1.6 % (0.0-6.0); HEMATOCRIT 39.3 % (38.2-49.6); HEMOGLOBIN 12.8 g/dL (14.0-18.0); LYMPHOCYTES # (AUTO) 1.6 (1.0-3.2); LYMPHOCYTES % 23.1 % (18.0-39.1); MEAN CORPUSCULAR HEMOGLOBIN 31.1 pg (28-32); MEAN CORPUSCULAR HGB CONC 32.6 g/dL (31-35); MEAN CORPUSCULAR VOLUME 95.4 fL (81-99); MONOCYTES # (AUTO) 0.5 (0.2-0.8); MONOCYTES % 7.4 % (4.4-11.3); NEUTROPHILS # (AUTO) 4.7 (2.1-6.9); NEUTROPHILS % 67.3 % (38.7-80.0); PLATELET COUNT 186 x10e3/uL (140-360); RED BLOOD COUNT 4.12 x10e6/uL (4.3-5.7); RED CELL DISTRIBUTION WIDTH 13.4 % (11.7-14.4); WHITE BLOOD COUNT 6.93 x10e3/uL (4.8-10.8)
[2023-11-18 06:09] LABS: ANION GAP 13.9 mmol/L (8-16); CALCIUM 8.4 mg/dL (8.4-10.2); CREATININE, SERUM 1.24 mg/dL (0.72-1.25)
[2023-11-18 06:11] LABS: POTASSIUM 2.9 mmol/L (3.5-5.1)
[2023-11-18] MEDS: POTASSIUM CHLORIDE 20 MEQ TAB CR PO PRN (06:16)
[2023-11-18] MEDS: POTASSIUM CHLORIDE 20 MEQ TAB CR PO ONE (09:24)
[2023-11-19] VITALS: BP 145/66; PULSE 73; RESP 17; TEMP 98.8; O2SAT 99
[2023-11-19 04:00] VITALS: BP 159/86; PULSE 72; RESP 18; TEMP 98.4; O2SAT 96
[2023-11-19 08:00] VITALS: BP 159/86; PULSE 72; RESP 18; TEMP 98.4; O2SAT 96
[2023-11-19 08:10] VITALS: PULSE 68; RESP 18; O2SAT 95
[2023-11-19 09:05] VITALS: BP 168/73; PULSE 71; RESP 19; TEMP 98.6; O2SAT 98
[2023-11-19 12:20] VITALS: BP 153/73; PULSE 66; RESP 19; TEMP 98.5; O2SAT 95
== END 2023-11-19 15:55 | disposition home or self-care (01) | DRG 389 ==
LOC: ER 11:19 → ERHOLD 16:47 → MED/SURG2 22:23
PROVIDERS: ADMIT Internal Medicine; ATTEND Internal Medicine
PROC: 0D9670Z Drainage of Stomach with Drainage Device, Via Natural or Artificial Opening (ICD-10-PCS; principal; 2023-11-14)
DX: K56.609 Unspecified intestinal obstruction, unspecified as to partial versus complete obstruction (principal); C34.11 Malignant neoplasm of upper lobe, right bronchus or lung; C71.9 Malignant neoplasm of brain, unspecified; N17.9 Acute kidney failure, unspecified; C61 Malignant neoplasm of prostate; E87.8 Other disorders of electrolyte and fluid balance, not elsewhere classified; R91.8 Other nonspecific abnormal finding of lung field; I10 Essential (primary) hypertension; E11.9 Type 2 diabetes mellitus without complications; K21.9 Gastro-esophageal reflux disease without esophagitis; E78.5 Hyperlipidemia, unspecified; M54.9 Dorsalgia, unspecified; E87.6 Hypokalemia; R31.9 Hematuria, unspecified; N28.1 Cyst of kidney, acquired; D64.9 Anemia, unspecified; E66.9 Obesity, unspecified; Z68.32 Body mass index [BMI] 32.0-32.9, adult; Z79.84 Long term (current) use of oral hypoglycemic drugs; Z86.73 Personal history of transient ischemic attack (TIA), and cerebral infarction without residual deficits; Z88.0 Allergy status to penicillin
CPT/HCPCS: 36415; 70450; 71045; 71260; 74018; 74022; 74177; 74470; 80048; 80053; 81001; 82550; 82948; 83690; 83735; 84100; 84132; 84443; 84484; 85025; 85610; 85730; 87040; 87086; 93005; 94760; 94799; 99285; J0360; J0696; J1650; J2270; J2405; J2470; J7030; J7042; J7050; Q9967

== ENCOUNTER 2024-11-17 15:02 | Emergency (ER) | payer MEDICARE ==
[~2024-11-17] VITALS: Ht 160 cm; Wt 72.6 kg
[2024-11-17 15:24] VITALS: TEMP 97.8
[2024-11-17] MEDS ORDERED: PANTOPRAZOLE SO40 MG PO (15:34)
[2024-11-17] MEDS ORDERED: OLMESARTAN MEDO40 MG PO (15:34)
[2024-11-17] MEDS ORDERED: HYDROCODON-ACE1 EA12 PO (15:34)
[2024-11-17] MEDS ORDERED: SODIUM CHLORIDE FLUSH 10 ML SYR IV PRN (16:00)
[2024-11-17 16:03] LABS: BASOPHILS % 0.0 % (0.0-1.0); EOSINOPHILS % 0.5 % (0.0-6.0); LYMPHOCYTES % 58.2 % (18.0-39.1); MONOCYTES % 1.6 % (4.4-11.3); NEUTROPHILS % 39.2 % (38.7-80.0); RED CELL DISTRIBUTION WIDTH 18.2 % (11.7-14.4)
[2024-11-17 16:16] LABS: EST GLOMERULAR FILTRATION RATE 25.0 ML/MIN (>=60)
[2024-11-17] MEDS: ONDANSETRON HCL INJ 2MG/ML 2ML 2 MG/ML VIAL IV STA (17:05)
[2024-11-17] MEDS: SODIUM CHLORIDE 0.9% 1000ML 1,000 ML IV ONE ×2 (17:05→18:27)
[2024-11-17 17:53] VITALS: PULSE 84; RESP 18
[2024-11-17 19:23] LABS: BAND NEUTROPHILS % (MANUAL) 3 %; LYMPHOCYTES % (MANUAL) 65 % (19-48); NEUTROPHILS % (MANUAL) 27 % (40-74); REACTIVE LYMPHOCYTES 5
[2024-11-17 19:24] LABS: PLATELET ESTIMATE MODERATELY DECREASED; PLATELET MORPHOLOGY COMMENT FEW LARGE
[2024-11-17 19:26] LABS: RBC MORPHOLOGY COMMENT NORMAL
[2024-11-17 19:27] LABS: ROULEAU MODERATE
[2024-11-17 19:37] VITALS: BP 104/58; O2SAT 99
== END 2024-11-17 19:36 | disposition short-term general hospital (02) ==
LOC: ER 15:27
DX: D64.81 Anemia due to antineoplastic chemotherapy (principal); C34.90 Malignant neoplasm of unspecified part of unspecified bronchus or lung; D61.810 Antineoplastic chemotherapy induced pancytopenia; N17.9 Acute kidney failure, unspecified; I10 Essential (primary) hypertension; E11.9 Type 2 diabetes mellitus without complications; Z87.440 Personal history of urinary (tract) infections; K21.9 Gastro-esophageal reflux disease without esophagitis; C71.9 Malignant neoplasm of brain, unspecified; Z79.84 Long term (current) use of oral hypoglycemic drugs
CPT/HCPCS: 36415; 71045; 80053; 83880; 84484; 85025; 93005; 94760; 99284; J2405; J7030